=== PATIENT | male | born 2000 | race African-American/Black ===

== ENCOUNTER 2019-10-16 19:40 | Inpatient (IN) ==
[2019-10-16 20:45] LABS: ABG Base Excess -1.9 MMOL/L (-2.5-2.5); ABG HCO3 22.7 MMOL/L (20-26); ABG Oxygen Saturation 93.9 % (95-100); ABG PCO2 36.2 MM HG (35-48); ABG PH 7.398 (7.35-7.45); ABG PO2 74.4 MM HG (80-95); ABG TCO2 18.1 MMOL/L (23-27); Allen Test Positive; Pt O2 Delivery Device Room Air
[2019-10-16 21:20] LABS: Apearance,Urine CLEAR (Clear); Bilirubin,Urine Negative (Negative); Blood, Urine Small mg/dL (Negative); Glucose,Urine (UA) >=500 mg/dL (Negative); Ketones,Urine 80 mg/dL (Negative); Mucus,Urine Occasional /LPF (Occasional); Nitrite,Urine Negative (Negative); Protein,Urine 100 MG/DL; RBC,Urine 1 /HPF (0-4); Urine Color Yellow (Yellow); Urine Specific Gravity 1.036 (1.001-1.035); WBC,Urine 1 /HPF (0-6)
[2019-10-16 21:34] LABS: Basophils # 0.2 10*3/uL (0.0-0.2); Basophils % 0.7 % (0.0-0.8); Eosinophils # 0.1 10*3/uL (0.0-0.87); Eosinophils % 0.3 % (0.00-10.9); Immature Granulocytes % 0.9 %; Lymphocytes % 18.5 % (21.2-54.2); Mean Corpuscular HGB Conc 34.6 GM/DL (32-36); Mean Corpuscular Volume 77.3 FL (87-102); Mean Platelet Volume 12.2 FL (9.6-12.0); Monocytes % 13.4 % (1.7-12.7); Neutrophils % 66.2 % (38.7-73.9); Platelet Count 309 T/CUMM (130-400); Red Blood Count 6.73 MC/CUMM (3.8-5.5); Red Cell Distribution Width 14.2 % (9.3-17.3); White Blood Count 21.7 T/CUMM (4-12)
[2019-10-16 21:54] LABS: Alanine Aminotransferase 41 U/L (16-61); Alkaline Phosphatase 142 U/L (45-117); Aspartate Amino Transferase 39 U/L (0-37); Bilirubin,Total < 0.39 MG/DL (0.2-1.0); Blood Urea Nitrogen 21 MG/DL (7-18); Calcium 9.5 MG/DL (8.5-10.1); Estimated Glom Filtration Rate 132 ML/MIN; Glucose 238 MG/DL (74-106); Osmolality,Calculated 309.9 MOS/KG (273-304); Total Protein 8.3 G/DL (6.4-8.3)
[2019-10-16 21:57] LABS: Lymphocytes 24 % (20-55); Platelet Estimate Normal; Segmented Neutrophils 68 % (50-85); Total Cells Counted 100
[2019-10-16] MEDS ORDERED: DEXTROSE 50% 25 GM/50 ML VIAL IV PRN (21:57)
[2019-10-16] MEDS ORDERED: PROMETHAZINE 25 MG/1 ML VIAL IM PRN (21:57)
[2019-10-16] MEDS ORDERED: ALBUTEROL 2.5 MG/3 ML NEB RESP TX PRN (21:57)
[2019-10-16] MEDS ORDERED: ONDANSETRON 4 MG/2 ML VIAL IV PRN (21:57)
[2019-10-16] MEDS ORDERED: GLUCAGON 1 MG VIAL IM PRN (21:57)
[2019-10-16] MEDS ORDERED: INSULIN REGULAR 100 UNIT/ML SUBCUT SCH (22:00)
[2019-10-16] MEDS ORDERED: DEXT 5% NACL 0.45% KCL 20 MEQ 20 MEQ/1,000 ML BAG IV SCH (22:00)
[2019-10-16] MEDS ORDERED: INSULIN REGULAR DRIP 100 ML IV PRN (22:30)
[2019-10-16] MEDS: SODIUM CHLOR 0.45% KCL 20 MEQ 20 MEQ/1,000 ML BAG IV SCH (23:05)
[2019-10-17] MEDS: INSULIN REGULAR 100 UNIT/ML IV PRN ×3 (00:05→06:28)
[2019-10-17] MEDS: INSULIN REGULAR 100 UNIT/ML IV ONE ×2 (00:05→04:15)
[2019-10-17 01:17] LABS: Basophils # 0.1 10*3/uL (0.0-0.2); Basophils % 0.5 % (0.0-0.8); Eosinophils % 0.2 % (0.00-10.9); Hematocrit 50.4 VOL% (42.0-52.0); Hemoglobin 17.2 GM/DL (14.0-18.0); Immature Granulocytes % 0.8 %; Immature Granulocytes Absolute 0.14 #; Lymphocytes # 3.2 10*3/uL (1.4-4.0); Lymphocytes % 18.2 % (21.2-54.2); Mean Corpuscular HGB Conc 34.1 GM/DL (32-36); Monocytes % 9.1 % (1.7-12.7); Neutrophils % 71.2 % (38.7-73.9); Platelet Count 272 T/CUMM (130-400); Red Blood Count 6.46 MC/CUMM (3.8-5.5); Red Cell Distribution Width 13.8 % (9.3-17.3); White Blood Count 17.7 T/CUMM (4-12)
[2019-10-17 01:38] LABS: Calcium 9.5 MG/DL (8.5-10.1); Osmolality,Calculated 309.3 MOS/KG (273-304)
[2019-10-17] MEDS: SODIUM CHLOR 0.45% KCL 20 MEQ 20 MEQ/1,000 ML BAG IV SCH ×2 (03:42→07:58)
[2019-10-17 05:05] LABS: Albumin 3.7 G/DL (3.4-5.0); Bilirubin,Total 0.5 MG/DL (0.2-1.0); Calcium 9.2 MG/DL (8.5-10.1); Osmolality,Calculated 307.1 MOS/KG (273-304); Total Protein 7.7 G/DL (6.4-8.3)
[2019-10-17] MEDS: PANTOPRAZOLE 40 MG TABLET PO SCH (08:02)
[2019-10-17] MEDS: ENOXAPARIN 40 MG/0.4 ML SYRINGE SUBCUT SCH (08:04)
[2019-10-17] MEDS ORDERED: GLUCAGON 1 MG VIAL IM PRN (09:17)
[2019-10-17] MEDS ORDERED: DEXTROSE 10% 250 ML BAG IV PRN (09:17)
[2019-10-17] MEDS ORDERED: INSULIN GLARGINE 100 UNIT/ML SUBCUT SCH ×2 (09:30→17:14)
[2019-10-17] MEDS: hydrALAZINE 20 MG/1 ML VIAL IV PRN ×2 (09:38→14:38)
[2019-10-17] MEDS: INSULIN REGULAR 100 UNIT/ML SUBCUT SCH ×3 (11:27→20:48)
[2019-10-17] MEDS ORDERED: ACETAMINOPHEN 325 MG TABLET PO ONE (17:16)
[2019-10-17] MEDS ORDERED: METOPROLOL TARTRATE 25 MG TABLET PO ONE (17:17)
[2019-10-17] MEDS: SODIUM CHLORIDE 0.45% 1,000 ML IV SCH (17:36)
[2019-10-17] MEDS ORDERED: METOPROLOL TARTRATE 5 MG/5 ML VIAL IV ONE (17:44)
[2019-10-18] MEDS: INSULIN REGULAR 100 UNIT/ML SUBCUT SCH ×4 (00:34→12:38)
[2019-10-18] MEDS: SODIUM CHLORIDE 0.45% 1,000 ML IV SCH ×2 (02:17→09:30)
[2019-10-18 06:35] LABS: Calcium 8.4 MG/DL (8.5-10.1); Osmolality,Calculated 293.8 MOS/KG (273-304); Thyroid Stimulating Hormone 1.44 uIU/ml (0.358-3.74)
[2019-10-18] MEDS ORDERED: ATOMOXETINE 40 MG PO SCH (09:00)
[2019-10-18] MEDS ORDERED: ZIPRASIDONE 20 MG CAPSULE PO SCH (09:00)
[2019-10-18] MEDS ORDERED: METOPROLOL TARTRATE 25 MG TABLET PO SCH (09:00)
[2019-10-18] MEDS: ENOXAPARIN 40 MG/0.4 ML SYRINGE SUBCUT SCH (09:57)
[2019-10-18] MEDS: PANTOPRAZOLE 40 MG TABLET PO SCH (09:57)
[2019-10-18 16:42] VITALS: BP 116/81
[2019-10-18] MEDS ORDERED: traZODone 50 MG TABLET PO SCH (19:00)
== END 2019-10-18 12:42 | disposition home or self-care (01) | DRG 420 ==
LOC: N.ED 19:40 → N.EDINP 20:40 → SUATTDRO 20:40 → N.ICU 22:00 → N.3E 10-17 14:47
PROVIDERS: ADMIT Internal Medicine; ATTEND Internal Medicine